=== PATIENT | male | born 1990 | race Caucasian/White ===

== ENCOUNTER → 2017-10-10 | Emergency (ER) | payer OTHER ==
[~2017-10-10] VITALS: Ht 185.4 cm; Wt 93.0 kg
--- NOTE | 2017-10-10 19:24 | Diagnostic Imaging Report ---
History: Pain, previous spinal fusion Comparison studies: None Technique: Axial images were obtained through the lumbar spine from Coronal and sagittal images reconstructed from the axial data. Dose modulation, iterative reconstruction, and/or weight based adjustment of the mA/kV was utilized to reduce the radiation dose to as low as reasonably achievable. Intravenous contrast: None Findings: Number of non-rib bearing vertebral bodies: 5 Alignment: Straightened lumbar curvature. Mild lumbar curvature convex to the left centered at L2-L3. Soft tissues: No gross acute abnormalities. Paraspinal muscles: Unremarkable. Sacroiliac joints: No degenerative changes. Vertebrae: No acute fractures. Chronic-appearing superior L3 endplate depression deformity with endplate irregularity. Nonaggressive-appearing 1.4 cm sclerotic lesion in the left sacral ala may be a bone island. Posterior instrumented L2-L4 fusion with bilateral rods fixated via transpedicular screws at L1 and at L4 and left unilateral pedicle screw at L3 without evidence of hardware failure. There is lucency along the right L4 screw which may indicate degree of loosening. Laminectomy changes at L2-L3 and L3-L4. Degenerative changes: L1-L2: Patent canal and foramina. L2-L3: Moderately degenerated disc with loss of disc height. Patent canal and foramina. L3-L4: Patent canal and foramina. L4-L5: Small Schmorl's node along the superior L5 endplate. Asymmetric right disc bulge with mild right foraminal stenosis. Patent canal and left foramen. L5-S1: Mildly degenerated disc with loss of disc height posteriorly. Asymmetric right disc bulge results in minimal right foraminal narrowing. Patent canal and left foramen. IMPRESSION: 1. No acute fracture or subluxation. 2. Surgical changes of L2-L4 posterior instrument fusion and L3 laminectomies. Lucency along the right L4 transpedicular screw may indicate hardware loosening. 3. Chronic appearing superior L3 endplate depression deformity with moderately degenerated L2-L3 disc. Signed by: Dr. Brown Paris M.D. on 10/10/2017 7:21 PM
== END | disposition home or self-care (01) ==
LOC: ER 17:40 → EDSEX 17:40
DX: M54.5 Low back pain (principal); S39.012A Strain of muscle, fascia and tendon of lower back, initial encounter; X50.9XXA Other and unspecified overexertion or strenuous movements or postures, initial encounter; Y92.008 Other place in unspecified non-institutional (private) residence as the place of occurrence of the external cause; I10 Essential (primary) hypertension; Z98.1 Arthrodesis status
CPT/HCPCS: 72131

== ENCOUNTER 2017-11-13 17:00 | Outpatient (RCR) | payer OTHER | END 2017-11-17 | LOC: PT 17:00 | PROVIDERS: ATTEND Neurological Surgery | DX: M47.896 Other spondylosis, lumbar region (principal); M54.5 Low back pain; M62.81 Muscle weakness (generalized); M53.86 Other specified dorsopathies, lumbar region ==

== ENCOUNTER 2017-11-18 17:05 | Outpatient (RCR) | payer OTHER ==
[2017-11-20] MEDS ORDERED: FENTANYL CITRATE/PF 100MCG/2 ML INJ ONE (12:03)
[2017-11-20] MEDS ORDERED: MIDAZOLAM HCL 2 MG/2 ML VIAL ONE (12:03)
== END 2017-12-18 ==
LOC: PT 17:05
PROVIDERS: ATTEND Neurological Surgery
DX: M47.896 Other spondylosis, lumbar region (principal)
CPT/HCPCS: 97110; 97139; J2250